=== PATIENT | female | born 1985 | race Caucasian/White ===

== ENCOUNTER 2023-10-23 00:50 | Inpatient (IN) | payer OTHER ==
[2023-10-23] MEDS ORDERED: ELECTROLYTE-148 SOLN 500 ML IV ONE (09:04)
[2023-10-23] MEDS ORDERED: ELECTROLYTE-148 SOLN 1,000 ML IV SCH (09:15)
[2023-10-23 09:29] LABS: BASO % 0.5 % (0-2.0); EOS % 0.2 % (0-4.5); HEMATOCRIT 37.5 % (32.4-45.2); HEMOGLOBIN 12.8 GM/dL (10.7-15.3); LYMPH % 9.8 % (8-40); MCH 28.6 pg (25.7-33.7); MCHC 34.1 g/dl (32.0-36.0); MEAN CELL VOLUME 83.6 fl (80-96); MEAN PLT VOLUME 9.4 fl (7.5-11.1); MONO % 2.6 % (3.8-10.2); NEUT % 86.9 % (42.8-82.8); PLATELET COUNT 267 10^3/uL (134-434); RBC 4.48 M/mm3 (3.60-5.2); RDW 13.1 % (11.6-15.6)
[2023-10-23 09:30] VITALS: BMI 36.0
[2023-10-23 09:36] LABS: INR 1.01 (0.83-1.09); PROTHROMBIN TIME (PATIENT) 11.7 SEC (9.7-13.0)
[2023-10-23 09:39] LABS: ACTIVATED PTT 26.4 SECONDS (25.2-36.5)
[2023-10-23] MEDS ORDERED: FENTANYL/BUPIVACAINE/NS/PF - PCEA - 50 ML DISP.SYRIN EP ONE (09:49)
[2023-10-23 09:56] LABS: BLOOD UREA NITROGEN 10.6 mg/dL (7-18)
[2023-10-23 09:59] LABS: CREATININE 0.6 mg/dL (0.55-1.3)
[2023-10-23] MEDS ORDERED: NALOXONE HCL 0.4 MG/ML VIAL IVPUSH PRN (10:40)
[2023-10-23] MEDS ORDERED: FENTANYL/BUPIVACAINE/NS/PF - PCEA - 50 ML DISP.SYRIN EP SCH (10:45)
[2023-10-23] MEDS ORDERED: OXYTOCIN 20 UNITS in 0.9% NS 20 UNIT/1,000 ML INFUS.BAG IV ONE (12:22)
[2023-10-23] MEDS ORDERED: BENZOCAINE 28 GM HEMORRHOIDAL OINTMENT TP PRN (13:14)
[2023-10-23] MEDS ORDERED: IBUPROFEN 600 MG TABLET (FP) PO PRN (13:14)
[2023-10-23] MEDS ORDERED: BENZOCAINE 20% 57 GM BOTTLE TP PRN (13:14)
[2023-10-23] MEDS ORDERED: ACETAMINOPHEN 325 MG TABLET (FP) PO PRN (13:14)
[2023-10-23] MEDS ORDERED: WITCH HAZEL 50% (TUCKS) 40 PAD/JAR PAD TP PRN (13:14)
[2023-10-23] MEDS ORDERED: BISACODYL 10 MG SUPP.RECT RC PRN (13:14)
[2023-10-23] MEDS ORDERED: METHYLERGONOVINE MALEATE 0.2 MG/1 ML AMP IM PRN (13:14)
[2023-10-23] MEDS ORDERED: OXYTOCIN 20 UNITS in 0.9% NS 20 UNIT/1,000 ML INFUS.BAG IV SCH (13:15)
[2023-10-24 08:21] LABS: BASO % 0.2 % (0-2.0); EOS % 0.2 % (0-4.5); HEMATOCRIT 34.8 % (32.4-45.2); HEMOGLOBIN 11.9 GM/dL (10.7-15.3); LYMPH % 17.9 % (8-40); MCHC 34.2 g/dl (32.0-36.0); MEAN CELL VOLUME 84.9 fl (80-96); MEAN PLT VOLUME 9.1 fl (7.5-11.1); MONO % 3.6 % (3.8-10.2); NEUT % 78.1 % (42.8-82.8); PLATELET COUNT 229 10^3/uL (134-434); RDW 13.2 % (11.6-15.6); WHITE BLOOD COUNT 12.7 K/mm3 (4.0-10.0)
[2023-10-24] MEDS: PRENATAL VITAMINS W/ FOLIC ACID TABLET (FP) PO SCH (09:59)
[2023-10-24] MEDS ORDERED: FLU VACCINE (FLULAVAL) PF 60 MCG/0.5 ML SYRINGE 2023-2024 IM ONE (19:00)
[2023-10-24] MEDS ORDERED: SENNOSIDES/DOCUSATE COMBO (SENNA PLUS) TABLET (UD) PO PRN (22:00)
[2023-10-24 22:35] VITALS: RESP 18
[2023-10-25 09:33] VITALS: BP 113/75; PULSE 80; TEMP 98
[2023-10-25] MEDS: PRENATAL VITAMINS W/ FOLIC ACID TABLET (FP) PO SCH (10:06)
== END 2023-10-25 12:35 | disposition home or self-care (01) | DRG 560 ==
LOC: JDEL 00:50 → JLDR 08:47 → J3W 15:30
PROVIDERS: ADMIT Obstetrics & Gynecology; ATTEND Obstetrics & Gynecology
PROC: 10E0XZZ Delivery of Products of Conception, External Approach (ICD-10-PCS; principal; 2023-10-23)
PROC: 0W8NXZZ Division of Female Perineum, External Approach (ICD-10-PCS; 2023-10-23)
PROC: 0HQ9XZZ Repair Perineum Skin, External Approach (ICD-10-PCS; 2023-10-23)
DX: O70.0 First degree perineal laceration during delivery (principal); Z3A.39 39 weeks gestation of pregnancy; Z37.0 Single live birth
CPT/HCPCS: 36415; 59025; 80048; 85025; 85610; 85730; 86780; 86850; 86900; 86901